=== PATIENT | male | born 1995 | race Caucasian/White ===

== ENCOUNTER 2019-04-29 14:35 | Emergency (ER) | payer MEDICAID ==
[~2019-04-29] VITALS: Ht 180.3 cm; Wt 90.9 kg
[2019-04-29 14:35] VITALS: Ht 180.3 cm; Wt 90.9 kg
[2019-04-29] MEDS ORDERED: ZANTAC300 MG PO (14:55)
[2019-04-29] MEDS ORDERED: SINGULAIR10 MG PO (14:55)
[2019-04-29] MEDS ORDERED: CATAPRES0.1 MG PO (14:57)
[2019-04-29] MEDS ORDERED: OMEPRAZOLE20 M1 PO (14:57)
[2019-04-29] MEDS ORDERED: CLARITIN 10 MG10 MG PO (14:58)
[2019-04-29 15:00] VITALS: BP 119/80
[2019-04-29 15:40] LABS: BASOPHILS 0.5 % (0-2); EOSINOPHILS 3.8 % (0-7); HEMATOCRIT 45.4 % (42.0-54.0); HEMOGLOBIN 15.8 g/dL (13.5-17.5); IMMATURE GRANULOCYTES 0.3 % (0-5); LYMPHOCYTES 31.7 % (15-50); MCH 30.3 pg (26.0-34.0); MCHC 34.8 g/dL (31.0-37.0); MCV 87.1 fL (80.0-100.0); MEAN PLATELET VOLUME 11.4 fL (7.4-10.4); MONOCYTES 7.4 % (2-11); NEUTROPHILS 56.3 % (40-80); PLATELET COUNT 237 10x3/uL (130-400); RBC 5.21 10x6/uL (4.20-6.10); RDW 12.1 % (11.5-14.5); WBC 6.7 10x3/uL (4.8-10.8)
[2019-04-29] MEDS ORDERED: ACETAMINOPHEN500 M1 PO (15:46)
[2019-04-29] MEDS ORDERED: IBUPROFEN800 MG PO (15:46)
[2019-04-29] MEDS ORDERED: CYCLOBENZAPRINE10 MG PO (15:46)
[2019-04-29 15:52] LABS: APTT 24.6 SECONDS (22.8-39.4); INR 0.97 (0.85-1.17); PROTIME 12.4 SECONDS (11.6-15.0)
[2019-04-29 16:14] LABS: ALBUMIN 4.4 g/dL (3.4-5.0); ALKALINE PHOSPHATASE 90 U/L (46-116); ALT (SGPT) 39 U/L (10-68); BILIRUBIN - TOTAL 0.58 mg/dL (0.2-1.3); CALC OSMOLALITY 283 mosm/kg (275-300); CALCIUM 9.2 mg/dL (8.5-10.1); CARBON DIOXIDE 26.3 mmol/L (21.0-32.0); CHLORIDE - SERUM 105 mmol/L (98-107); GLUCOSE 93 mg/dL (74-106); POTASSIUM - SERUM 3.7 mmol/L (3.5-5.1); PROTEIN - SERUM 7.9 g/dL (6.4-8.2); SODIUM 142 mmol/L (136-145); UREA NITROGEN 15 mg/dL (7-18); eGFR NON AFRICAN AMERICAN > 90 mL/min (90-120)
[2019-04-29 16:14] LABS: APPEARANCE CLEAR (CLEAR); BILIRUBIN NEGATIVE (NEGATIVE); COLOR YELLOW (YELLOW); GLUCOSE NEGATIVE (NEGATIVE); KETONE NEGATIVE (NEGATIVE); NITRITE NEGATIVE (NEGATIVE); PROTEIN NEGATIVE (NEGATIVE); UROBILINOGEN NORMAL (NORMAL)
== END 2019-04-29 16:10 | disposition home or self-care (01) ==
LOC: D.ER 14:35
PROVIDERS: Family Medicine
DX: M54.5 Low back pain (principal); V49.9XXA Car occupant (driver) (passenger) injured in unspecified traffic accident, initial encounter; Y93.89 Activity, other specified; Y92.410 Unspecified street and highway as the place of occurrence of the external cause